=== PATIENT | female | born 1955 | race Asian ===

== ENCOUNTER 2022-09-26 07:08 | Day surgery (SDC) | payer MEDICARE, OTHER ==
[~2022-09-26] VITALS: Ht 149.9 cm; Wt 51.3 kg
[~2022-09-26 07:08] MED LIST: RINGERS SOLUTION,LACTATED 1,000 ML IV ONE
[2022-09-26] MEDS ORDERED: CeFAZolin 2 GM/DEXTROSE 50 ML IV ONE ×2 (07:36→09:00)
[2022-09-26] MEDS ORDERED: RINGERS SOLUTION,LACTATED 1,000 ML IV ONE (07:36)
[2022-09-26] MEDS ORDERED: TENO300 PO (07:43)
[2022-09-26] MEDS ORDERED: KETO-99 OU (07:43)
[2022-09-26] MEDS ORDERED: ALEN70TA80 PO (07:43)
[2022-09-26] MEDS ORDERED: LISI-893 PO (07:43)
[2022-09-26 07:58] LABS: BASOPHILS % (AUTO) 0.5 % (0.0-2.0); HEMATOCRIT 36.1 % (36-46); HEMOGLOBIN 11.9 g/dL (12.0-16.0); LYMPHOCYTES # (AUTO) 2.6 K/uL (1.0-4.8); LYMPHOCYTES % (AUTO) 48.3 % (22.0-44.0); MEAN CORPUSCULAR HEMOGLOBIN 30.4 pg (26.0-34.0); MEAN CORPUSCULAR HGB CONC 32.9 G/dL (31.0-37.0); MEAN CORPUSCULAR VOLUME 93 fL (80-100); MONOCYTES # (AUTO) 0.5 K/uL (0.1-1.0); MONOCYTES % (AUTO) 9.2 % (2.0-9.0); NEUTROPHILS # (AUTO) 2.2 K/uL (1.8-7.7); PLATELET COUNT (AUTO) 258 K/uL (150-450); RED CELL DISTRIBUTION WIDTH 12.9 % (11.5-14.5)
[2022-09-26 08:06] LABS: ANION GAP 6 mmol/L (8-16); CALCIUM, TOTAL 8.4 mg/dL (8.8-10.5); CARBON DIOXIDE 29 mmol/L (22-29); CHLORIDE 105 mmol/L (98-107); CREATININE 0.75 mg/dL (0.60-1.30); GLOMERULAR FILTR. RATE CALC > 60 mL/min (>60); GLUCOSE,RANDOM 96 mg/dL (70-110); POTASSIUM 4.1 mmol/L (3.5-5.1); SODIUM SERUM 140 mmol/L (136-145); UREA NITROGEN, BLOOD 18 mg/dL (7-18)
[2022-09-26] MEDS ORDERED: LIDOCAINE 2%/EPI 1:200,000/PF 20 ML VIAL ONE ×2 (08:06)
[2022-09-26] MEDS ORDERED: BUPIVACAINE HCL/PF 0.5% 30 ML VIAL ONE (08:06)
[2022-09-26] MEDS ORDERED: VANCOMYCIN HCL 1 GM/VIAL ONE (08:07)
[2022-09-26] MEDS ORDERED: SODIUM CHLORIDE 0.9% 0 ML ONE (08:07)
[2022-09-26] MEDS ORDERED: ETHYL ALCOHOL 62% ANTISEPTIC NASAL SANITIZER 0.6 ML AMPUL NASAL ONE (08:15)
[2022-09-26] MEDS ORDERED: SUGAMMADEX SODIUM 200 MG/2 ML VIAL IVP ONE (09:47)
[2022-09-26] MEDS ORDERED: PROPOFOL 1% 20 ML VIAL IVP ONE (12:00)
[2022-09-26] MEDS ORDERED: ROCURONIUM BROMIDE 10 MG/ML 5 ML VIAL IVP ONE (12:00)
[2022-09-26] MEDS ORDERED: LIDOCAINE/PF 2% 5 ML VIAL IM ONE (12:00)
[2022-09-26] MEDS ORDERED: ONDANSETRON HCL 4 MG/2 ML VIAL IVP ONE (12:00)
[2022-09-26] MEDS ORDERED: DEXAMETHASONE SOD PHOS 4 MG/ML VIAL IVP ONE (12:00)
[2022-09-26] MEDS ORDERED: FentaNYL CITRATE PF 100 MCG/2 ML VIAL IVP ONE (12:00)
== END 2022-09-26 11:25 | disposition home or self-care (01) ==
LOC: SURGERY 07:08 → EDSTATUS 09:00 → SURGERY 11:25
PROVIDERS: ATTEND Surgery
DX: D17.23 Benign lipomatous neoplasm of skin and subcutaneous tissue of right leg (principal); I10 Essential (primary) hypertension; D64.9 Anemia, unspecified; Z79.899 Other long term (current) drug therapy; Z98.890 Other specified postprocedural states
CPT/HCPCS: 27328; 80048; 85025; 36415; 88304; 76882; J3490 ×3; J2704; J1100; J3010; J2405; Q9967; J7120; J0690; J3370; J7030